=== PATIENT | female | born 1965 | race Caucasian/White ===

== ENCOUNTER → 2019-01-26 | Outpatient (CLI) | payer OTHER ==
[~2019-01-26] MED LIST: NORE1TAB23 PO; OMEP40CA45 PO; VIT1TABL62 PO
--- NOTE | 2019-01-26 15:05 | KCIC ---
CT CALCIUM SCORING dated 01/26/2019 2:00 PM Indication: Cardiovascular screening fluctuating blood pressure.. Comparison: No comparison is available. Technical factors: Computed tomography of the heart was performed with ECG gating, suspended respiration and without the administration of contrast material. Post processing was performed on the 3-D computer workstation using diastolic phase images to measure the amount of coronary vascular calcium. Scoring was aquired using the Agatston Method. Results: Thorax: No significant abnormality is identified in the lungs or mediastinum. Note that this CT exam is limited to the heart and adjacent structures. Coronary arteries: Calcium is absent. Total Agaston calcium score equals 0. Coronary vascular calcium is not detected with this exam. This does not absolutely rule out the presence of atherosclerotic plaque, including unstable plaque, but does imply a very low likelihood of significant luminal obstruction. A negative test may be consistent with a low risk of cardiovascular event in the next 2 to 5 years. Conclusions: Normal study, no coronary artery calcium identified. Recommendations: Healthy lifestyle choices including eating appropriately and exercise are encouraged. Additional supporting information concerning the findings and recommendation contained within this report can be found in the consensus statements on coronary vascular calcium published by the [place] [employer] and [place] [employer] and [employer] 5 Conference (Circulation 1996; 94: 6686-7860; J Am Letitia Cardiol 2000; 36: 326-340 and Circulation 2000; 101: 111-116). Electronically signed by: Keaton Barajas MD (01/26/2019 3:02 PM) [id number]
--- NOTE | 2019-01-26 15:18 | KCIC ---
EXAM: Carotid Doppler sonogram. HISTORY: Retinal hemorrhage. Hypertension. TECHNIQUE: Doppler sonographic evaluation of the neck was performed and static images are submitted for review. FINDINGS: There is moderate atherosclerotic plaque within the right carotid bulb and proximal internal and external carotid arteries. There is mild atherosclerotic plaque within the distal left common carotid artery and proximal left internal and external carotid arteries. The peak systolic velocity within the right common carotid artery is 114 cm/sec. The peak systolic velocity within the right internal carotid artery is 154 cm/sec and the end diastolic velocity within the right internal carotid artery is 46 cm/sec. The right ICA/CCA ratio is 1.35. The peak systolic velocity within the left common carotid artery is 138 cm/sec. The peak systolic velocity within the left internal carotid artery is 124 cm/sec and the end diastolic velocity within the left internal carotid artery is 35 cm/sec. The left ICA/CCA ratio is 1.11. There is normal antegrade flow within both vertebral arteries. IMPRESSION: 1. Elevated peak systolic velocity and end-diastolic velocity involving the right ICA, suggesting 50-69% stenosis. 2. Upper limits of normal peak systolic velocity within the left ICA, suggesting near 50% stenosis. 3. Moderate atherosclerotic plaque within the right carotid bulb and proximal internal and external carotid arteries, and mild atherosclerotic plaque within the distal left common carotid artery and proximal left internal and external carotid arteries. PQRS Compliance Statement - Stenosis calculations for CT, MR and conventional angiography are based upon measurement of the distal ICA diameter in accordance with the NASCET methodology. Stenosis calculations for carotid ultrasound studies are derived from validated velocity criteria which are known to correlate with the NASCET methodology. Electronically signed by: Padmini Franklin MD (01/26/2019 3:15 PM) [place] [id number]
== END | disposition home or self-care (01) ==
LOC: KCIC CT 13:51
PROVIDERS: ATTEND Physician Assistant Medical
DX: Z13.6 Encounter for screening for cardiovascular disorders (principal); I65.23 Occlusion and stenosis of bilateral carotid arteries; I99.8 Other disorder of circulatory system; I10 Essential (primary) hypertension; H35.63 Retinal hemorrhage, bilateral; Z87.891 Personal history of nicotine dependence
CPT/HCPCS: 75571; 93880